=== PATIENT | female | born 1945 | race Caucasian/White ===

== ENCOUNTER → 2022-07-18 | Outpatient (CLI) | payer MEDICARE | END | disposition home or self-care (01) | LOC: LAB 12:25 → LAB SHORT 12:25 | DX: D48.5 Neoplasm of uncertain behavior of skin (principal) | CPT/HCPCS: 88305 ==

== ENCOUNTER → 2022-11-26 | Outpatient (CLI) | payer MEDICARE | END | disposition home or self-care (01) | LOC: PLD 11:28 → LAB SHORT 11:28 | DX: D48.5 Neoplasm of uncertain behavior of skin (principal) | CPT/HCPCS: 88305 ==

== ENCOUNTER 2024-07-29 08:51 | Day surgery (SDC) | payer MEDICARE ==
[2024-07-29] VITALS (15 sets, daily range): BP systolic 117–157; BP diastolic 50–100
[~2024-07-29] VITALS: Ht 157.5 cm; Wt 67.4 kg
[~2024-07-29 08:51] MED LIST: Acetaminophen 500 MG Tab PO SCH; CeFAZolin Sodium 2,000 MG in NS 100 ML IV SCH; Chlorhexidine Mouth Care 15 ML UDC MT SCH; HYDCHL25 PO; Lactated Ringer's 1,000 ML IV SCH; METHI10 PO; OxyCODONE HCL 10 MG TABCR PO SCH; Ropivacaine 0.5% HCl/Pf 123.125 MG,EPINEPHrine HCL 0.25 MG,Ketorolac Tromethamine 15 MG... INFIL SCH; Tranexamic Acid 100 ML IV SCH
[2024-07-29] MEDS ORDERED: CeFAZolin Sodium 2,000 MG VIAL ONE (09:36)
[2024-07-29] MEDS ORDERED: Magnesium Hydroxide Conc 10 ML UDC PO PRN (09:55)
[2024-07-29] MEDS ORDERED: FLU VACC TS2024-25(6MOS UP)/PF 45 MCG/0.5 ML SYRINGE IM SCH (09:55)
[2024-07-29] MEDS ORDERED: Lactated Ringer's 1,000 ML IV SCH (09:55)
[2024-07-29] MEDS ORDERED: HYDROmorphone HCl/Pf 1MG SYR IV PRN (09:55)
--- NOTE | 2024-07-29 09:55 | NUR ---
Ambulatory in Day SurgeryPre-Op teaching done. Pt verbalizes understanding. History, Chart, Medications and Allergies reviewed before start of procedure.Patient confirms NPO status and agrees with scheduled surgery. Patient reports completing Chlorhexadine shower X2 prior to admission to hospital.
[2024-07-29] MEDS ORDERED: Ondansetron HCl 2 MG / ML 2ML Vial IV PRN ×2 (10:00→11:05)
[2024-07-29] MEDS ORDERED: OxyCODONE HCL 5 MG TAB PO PRN ×2 (10:00)
[2024-07-29] MEDS ORDERED: Promethazine HCl 25 MG Tab PO PRN (10:00)
[2024-07-29] MEDS ORDERED: Metoclopramide HCl 5MG / ML 2ML Vial IV PRN (10:00)
[2024-07-29] MEDS ORDERED: DiphenhydrAMINE HCL 25 MG Cap PO PRN (10:05)
[2024-07-29] MEDS ORDERED: Bisacodyl 10 MG Supp PR PRN (10:05)
[2024-07-29] MEDS ORDERED: propofoL 100 ML IV ONE (10:07)
[2024-07-29] MEDS ORDERED: HYDROmorphone HCl 0.5 MG/0.5 ML SYR IV PRN (10:15)
[2024-07-29] MEDS ORDERED: FentaNYL Citrate 50 MCG/ML 2 ML Injection ONE (10:20)
[2024-07-29] MEDS ORDERED: Midazolam HCl 1MG / ML 2ML Vial ONE (10:20)
[2024-07-29] MEDS ORDERED: Dexamethasone Sod Phos 10 MG/ML 1ML VIAL ONE (10:40)
[2024-07-29] MEDS ORDERED: Phenylephrine HCl 100 MCG/ML-NS 10MLSYR (1MG/10ML) ONE (10:44)
[2024-07-29] MEDS ORDERED: Ondansetron HCl 2 MG / ML 2ML Vial ONE (11:50)
[2024-07-29] MEDS ORDERED: Acetaminophen 500 MG Tab PO SCH (16:00)
[2024-07-29] MEDS ORDERED: Scopolamine Hydrobromide Patch TOP ONE (17:35)
[2024-07-29] MEDS ORDERED: Ketorolac Tromethamine 15mg Vial IV SCH (18:00)
[2024-07-29] MEDS ORDERED: CeFAZolin Sodium 2,000 MG in NS 100 ML IV SCH (18:30)
--- NOTE | 2024-07-29 19:25 | NUR ---
SHIFT SUMMARY INITIALLY POST OP WAS FEELING SLIGHTLY NAUSEATED BUT WAS TAKING SIPS. UNFORTUNATLY, THAT SLOWLY INCREASED & SHE BEGAN HAVING MORE VERTIGO-LIKE SYMPTOMS. 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 SYMPTOMS INCLUDE NAUSEA & DIZZINESS WHEN SHE TURNS HER HEAD TO THE LEFT BUT IT NOW HAS INCREASED TO ALL THE TIME. SCOP PATCH ORDERED. IVF INFUSING. BLADDER SCAN < 400mls & SHE WISHES TO TRY BEDPAN.
[2024-07-29] MEDS ORDERED: Docusate Sodium 100 MG Cap PO SCH (21:00)
[2024-07-30 04:09] VITALS: BP 131/63
[2024-07-30 05:22] LABS: BASOPHILS ABSOLUTE AUTO 0.03 K/mm3 (0.00-0.23); BASOPHILS PERCENT AUTO 0 % (0-2); EOSINOPHILS PERCENT AUTO 0 % (0-6); Hematocrit 37.6 % (33.0-51.0); Hemoglobin 12.6 g/dL (11.5-16.0); IMMATURE GRAN ABSOLUTE AUTO 0.11 K/mm3 (0.00-0.10); IMMATURE GRAN PERCENT AUTO 1 % (0-1); LYMPHOCYTES ABSOLUTE AUTO 1.43 K/mm3 (0.84-5.20); LYMPHOCYTES PERCENT AUTO 9 % (21-46); MONOCYTES ABSOLUTE AUTO 0.74 K/mm3 (0.16-1.47); MONOCYTES PERCENT AUTO 5 % (4-13); Mean Corpuscular HGB 30.4 pg (26.0-34.0); Mean Corpuscular HGB Conc 33.5 g/dL (31.5-36.5); Mean Corpuscular Volume 91 fL (80-100); Mean Platelet Volume 9.9 fL (9.1-12.4); NEUTROPHILS ABSOLUTE AUTO 13.68 K/mm3 (1.96-9.15); NEUTROPHILS PERCENT AUTO 86 % (41-73); Platelet Count 257 K/mm3 (150-400); RDW Coefficient Variation 13.3 % (11.7-14.2); RDW Standard Deviation 45.1 fL (35.1-46.3); Red Blood Cell Count 4.14 M/mm3 (3.80-5.20); White Blood Cell Count 15.99 K/mm3 (4.00-11.30)
[2024-07-30 05:41] LABS: Bun/Creatinine Ratio 35.4 (12.0-20.0); Calcium, Blood 8.5 mg/dL (8.5-10.1); Creatinine, Blood 0.62 mg/dL (0.40-1.00); Magnesium, Blood 1.8 mg/dL (1.6-2.4); Potassium, Blood 4.1 mmol/L (3.5-5.5)
--- NOTE | 2024-07-30 06:06 | NUR ---
SHIFT SUMMARY POD 1 S/P LEFT TKA. DRESSING AND NATALIA WRAP CDI. POLAR PACK IN PLACE TO LEFT KNEE T/O SHIFT ENRIQUETA. PAIN MANAGED PER EMAR. IS VOIDING AND ENRIQUETA PO INTAKE. AMBULATING IN HALLWAY WITH FWW, GB, SBA. ABX INFUSED PER ORDERS. PLAN TO WORK WITH THERAPY AND DC HOME TODAY.
[2024-07-30 07:12] VITALS: BP 122/48
[2024-07-30] MEDS ORDERED: OXYC5 PO (08:25)
[2024-07-30] MEDS ORDERED: XARELTO10 M4 PO (08:25)
[2024-07-30] MEDS ORDERED: SULTRIDS PO (08:26)
[2024-07-30] MEDS ORDERED: Trimethoprim/Sulfamethoxazole DS Tab PO SCH (09:00)
[2024-07-30] MEDS ORDERED: methIMAzole 5 MG TABLET PO SCH (09:00)
[2024-07-30] MEDS ORDERED: HydroCHLOROthiazide 25 mg Tab PO SCH (09:00)
--- NOTE | 2024-07-30 10:15 | NUR ---
PERSCRIPTIONS FOR [facility]OFRAN AND BACTRIM DS CALLED TO [facility] [place].
--- NOTE | 2024-07-30 10:18 | NUR ---
DISCHARGE PT HAS WORKED w/ THERAPY. PAIN WELL CONTROLLED. EATING, DRINKING, & VOIDING WELL. YAYA & PATRICIO ZAMBRANO SENT w/ PT. ESCORTED OUT VIA W/C.
[2024-07-30] MEDS ORDERED: Rivaroxaban 10 MG Tab PO SCH (19:00)
== END 2024-07-30 10:19 | disposition home or self-care (01) ==
LOC: ORSCMMR 08:51 → ORD 10:45 → ORSCMMR 10:45 → SURS 12:51 → ORSCMMR 07-30 10:19
PROVIDERS: Orthopaedic Surgery
PROC: 0SRD0JA Replacement of Left Knee Joint with Synthetic Substitute, Uncemented, Open Approach (ICD-10-PCS; principal; 2024-07-29 10:45)
DX: M17.12 Unilateral primary osteoarthritis, left knee (principal); I10 Essential (primary) hypertension; Z87.891 Personal history of nicotine dependence; Z79.899 Other long term (current) drug therapy
CPT/HCPCS: 36415; 73560-LT; 80048; 83735; 85025; 97110; 97116; 97162; A9270; C1713; C1776; J0171; J0690; J0735; J1100; J1885; J2250; J2371; J2405; J2704; J2765; J2795; J3010; J7120

== ENCOUNTER → 2024-09-07 | Outpatient (CLI) | payer MEDICARE ==
[~2024-09-07] MED LIST changes: -Acetaminophen 500 MG Tab PO SCH; -CeFAZolin Sodium 2,000 MG in NS 100 ML IV SCH; -Chlorhexidine Mouth Care 15 ML UDC MT SCH; -Lactated Ringer's 1,000 ML IV SCH; +OXYC5 PO; -OxyCODONE HCL 10 MG TABCR PO SCH; -Ropivacaine 0.5% HCl/Pf 123.125 MG,EPINEPHrine HCL 0.25 MG,Ketorolac Tromethamine 15 MG... INFIL SCH; +SULTRIDS PO; -Tranexamic Acid 100 ML IV SCH; +XARELTO10 M4 PO
[2024-09-07 18:21] LABS: Bacterial Vaginosis PCR Negative (NEGATIVE); Candida Group, PCR NOT DETECTED (NOT DETECT); Candida glabrata-krusei, PCR NOT DETECTED (NOT DETECT)
== END ==
LOC: LAB 15:43 → LAB SHORT 15:43
PROVIDERS: Obstetrics & Gynecology
DX: N89.8 Other specified noninflammatory disorders of vagina (principal)
CPT/HCPCS: 81515

== ENCOUNTER 2024-11-08 07:40 | Emergency (ER) | payer MEDICARE ==
[~2024-11-08] VITALS: Ht 157.5 cm; Wt 65.8 kg
[2024-11-08] MEDS ORDERED: TiZANidine HCl 4 MG Tab PO ONE (08:55)
[2024-11-08] MEDS ORDERED: PredniSONE 20 MG Tab PO ONE (08:55)
[2024-11-08] MEDS ORDERED: Ketorolac Tromethamine 15mg Vial IM ONE (08:55)
[2024-11-08] MEDS ORDERED: Lidocaine 4% 1 Patch TOP ONE (09:00)
[2024-11-08 09:45] VITALS: BP 156/62
[2024-11-08] MEDS ORDERED: LIDO700A20 TOP (10:09)
[2024-11-08] MEDS ORDERED: TIZA4 PO (10:09)
== END 2024-11-08 10:17 | disposition home or self-care (01) ==
LOC: ER 07:40
DX: M54.31 Sciatica, right side (principal); Z79.899 Other long term (current) drug therapy; Z88.1 Allergy status to other antibiotic agents
CPT/HCPCS: 96372; 99283-25; A9270; J1885; J7512

== ENCOUNTER 2025-02-07 13:03 | Observation (INO) | payer MEDICARE ==
[~2025-02-07] VITALS: Ht 157.5 cm; Wt 68.2 kg
[~2025-02-07 13:03] MED LIST changes: +LIDO700A20 TOP; +TIZA4 PO
[2025-02-07 14:27] LABS: BASOPHILS ABSOLUTE AUTO 0.08 K/mm3 (0.00-0.23); BASOPHILS PERCENT AUTO 1 % (0-2); EOSINOPHILS ABSOLUTE AUTO 0.35 K/mm3 (0.00-0.68); EOSINOPHILS PERCENT AUTO 4 % (0-6); Hematocrit 36.6 % (33.0-51.0); Hemoglobin 12.3 g/dL (11.5-16.0); IMMATURE GRAN ABSOLUTE AUTO 0.02 K/mm3 (0.00-0.10); IMMATURE GRAN PERCENT AUTO 0 % (0-1); LYMPHOCYTES ABSOLUTE AUTO 2.60 K/mm3 (0.84-5.20); LYMPHOCYTES PERCENT AUTO 32 % (21-46); MONOCYTES ABSOLUTE AUTO 0.61 K/mm3 (0.16-1.47); MONOCYTES PERCENT AUTO 7 % (4-13); Mean Corpuscular HGB Conc 33.6 g/dL (31.5-36.5); Mean Corpuscular Volume 89 fL (80-100); NEUTROPHILS ABSOLUTE AUTO 4.54 K/mm3 (1.96-9.15); NEUTROPHILS PERCENT AUTO 55 % (41-73); NRBC ABSOLUTE 0.00 K/mm3 (0.00-0.02); NRBC Auto 0.0 /100 WBC (0.0-0.2); Platelet Count 267 K/mm3 (150-400); RDW Coefficient Variation 14.1 % (11.7-14.2); RDW Standard Deviation 45.5 fL (35.1-46.3)
[2025-02-07 14:40] LABS: Alanine Aminotransfer (ALT/SGP 20.0 U/L (12-78); Albumin, Blood 3.3 g/dL (3.4-5.0); Albumin/Globulin Ratio 1.0 (0.8-1.8); Anion Gap 9.0 mmol/L (3-11); Aspartate Aminotrans (AST/SGOT 27.0 U/L (12-37); Bilirubin, Total 0.8 mg/dL (0.1-1.0); Blood Urea Nitrogen 19.0 mg/dL (8-24); CO2, Blood 25.0 mmol/L (21-32); Calcium, Blood 8.9 mg/dL (8.5-10.1); Chloride, Blood 104.0 mmol/L (98-108); Creatinine, Blood 0.74 mg/dL (0.40-1.00); Globulin, Blood 3.3 g/dL (2.2-4.0); Glucose, Blood 93.0 mg/dL (70-99); Potassium, Blood 3.7 mmol/L (3.5-5.5); Sodium, Blood 134.0 mmol/L (136-145); Total Protein, Blood 6.6 g/dL (6.4-8.2)
[2025-02-07 15:27] LABS: Prothrombin Time Results 11.9 Sec (9.7-11.5)
[2025-02-07 18:50] VITALS: BP 159/63
--- NOTE | 2025-02-07 19:14 | NUR ---
ADMISSION NOTE PT A&OX4. PT ADMITTED DUE TO [facility] S/P CVA. PT ADMIT FROM ER, CAME BY WHEELCHAIR. PT ON BEDREST W BATH PRIVILEDGES. PT TRANSFERED SELF FROM WHEELCHAIR TO BED W STEADY GAIT. THIS RN GOT REPORT FROM ER. AND GAVE REPORT TO NIGHT RN. PT ORIENTED TO UNIT/FALL PRECAUTIONS/CALL LIGHT. PT IN BED, BED IN LOWEST POSITION, CALL LIGHT IN REACH. DAUGHTER AT BEDSIDE. TOOK VITALS. WAXING MACHINE OPERATOR TOOK WEIGHT.
[2025-02-08 04:06] VITALS: BP 137/60
--- NOTE | 2025-02-08 04:50 | NUR ---
SHIFT SUMMARY PATIENT ALERT AND ORIENTED X4. PATIENT MAKE NEEDS KNOWN. PLEASANT AND COOPERATIVE WITH CARE. VSS. NO ACUTE CHANGE DURING THIS SHIFT. MRI ORDER IN PLACE FOR TODAY. PATIENT SELF REPOSITIONED THROUGHOUT THE SHIFT. BED LOCKED AND LOWEST POSITION. CALL LIGHT WITHIN REACH.
[2025-02-08 05:16] LABS: BASOPHILS ABSOLUTE AUTO 0.09 K/mm3 (0.00-0.23); BASOPHILS PERCENT AUTO 1 % (0-2); EOSINOPHILS ABSOLUTE AUTO 0.54 K/mm3 (0.00-0.68); EOSINOPHILS PERCENT AUTO 6 % (0-6); Hematocrit 40.0 % (33.0-51.0); Hemoglobin 13.5 g/dL (11.5-16.0); IMMATURE GRAN ABSOLUTE AUTO 0.02 K/mm3 (0.00-0.10); IMMATURE GRAN PERCENT AUTO 0 % (0-1); LYMPHOCYTES ABSOLUTE AUTO 2.15 K/mm3 (0.84-5.20); LYMPHOCYTES PERCENT AUTO 24 % (21-46); MONOCYTES ABSOLUTE AUTO 0.83 K/mm3 (0.16-1.47); MONOCYTES PERCENT AUTO 9 % (4-13); Mean Corpuscular HGB Conc 33.8 g/dL (31.5-36.5); Mean Corpuscular Volume 89 fL (80-100); NEUTROPHILS ABSOLUTE AUTO 5.32 K/mm3 (1.96-9.15); NEUTROPHILS PERCENT AUTO 60 % (41-73); NRBC ABSOLUTE 0.00 K/mm3 (0.00-0.02); NRBC Auto 0.0 /100 WBC (0.0-0.2); Platelet Count 256 K/mm3 (150-400); RDW Coefficient Variation 14.1 % (11.7-14.2); RDW Standard Deviation 45.5 fL (35.1-46.3)
[2025-02-08 05:53] LABS: Alanine Aminotransfer (ALT/SGP 18.0 U/L (12-78); Albumin, Blood 3.3 g/dL (3.4-5.0); Albumin/Globulin Ratio 0.9 (0.8-1.8); Anion Gap 11.0 mmol/L (3-11); Aspartate Aminotrans (AST/SGOT 14.0 U/L (12-37); Bilirubin, Total 0.6 mg/dL (0.1-1.0); Blood Urea Nitrogen 22.0 mg/dL (8-24); CO2, Blood 23.0 mmol/L (21-32); Calcium, Blood 8.6 mg/dL (8.5-10.1); Chloride, Blood 110.0 mmol/L (98-108); Creatinine, Blood 0.73 mg/dL (0.40-1.00); Globulin, Blood 3.5 g/dL (2.2-4.0); Glucose, Blood 89.0 mg/dL (70-99); Magnesium, Blood 1.9 mg/dL (1.6-2.4); Potassium, Blood 3.6 mmol/L (3.5-5.5); Sodium, Blood 140.0 mmol/L (136-145); Total Protein, Blood 6.8 g/dL (6.4-8.2)
[2025-02-08 07:14] VITALS: BP 138/53
[2025-02-08] MEDS ORDERED: Enoxaparin 40 MG/0.4 ML SYR SC SCH (09:00)
[2025-02-08 15:19] VITALS: BP 147/64
[2025-02-08] MEDS ORDERED: ASPI81CH PO (15:59)
[2025-02-08] MEDS ORDERED: CLOP75 PO (16:00)
[2025-02-08] MEDS ORDERED: ATOR40TA PO (16:01)
--- NOTE | 2025-02-08 16:42 | NUR ---
DISCHARGE PT DISCHARGED HOME. IV REMOVED. PT ESCORTED OUT TO CAR VIA W/C. DISCAHRGE INSTRUCTIONS. NO QUESTIONS AT THIS TIME. CARE ONGOING.
== END 2025-02-08 16:35 | disposition home health service (06) ==
LOC: ER 13:03 → MEDS 13:04
PROVIDERS: Emergency Medicine; ADMIT Internal Medicine
DX: I63.512 Cerebral infarction due to unspecified occlusion or stenosis of left middle cerebral artery (principal); R47.01 Aphasia; R53.1 Weakness; I10 Essential (primary) hypertension; E05.90 Thyrotoxicosis, unspecified without thyrotoxic crisis or storm; Z85.3 Personal history of malignant neoplasm of breast; Z90.12 Acquired absence of left breast and nipple; Z92.3 Personal history of irradiation; Z87.891 Personal history of nicotine dependence; Z79.899 Other long term (current) drug therapy; Z88.2 Allergy status to sulfonamides; Z88.8 Allergy status to other drugs, medicaments and biological substances
CPT/HCPCS: 36415; 70450; 70496; 70498; 70551; 71045; 80053; 82947; 83735; 84484; 85025; 85610; 85730; 93005; 93010; 96372; 97161; 97530; 99285-25; A9270; G0378; J1650; Q9967